=== PATIENT | female | born 1970 | race Caucasian/White ===

== ENCOUNTER 2022-11-20 04:59 | Day surgery (SDC) | payer BC, OTHER ==
[2022-11-19 07:57] VITALS: BMI 22.5
[2022-11-20 08:26] VITALS: TEMP 97.1
[2022-11-20 09:07] VITALS: BP 111/70; PULSE 67; RESP 16
[2022-11-20 10:47] LABS: POTASSIUM 4.8 mmol/L (3.5-5.1)
[2022-11-20 10:53] LABS: CALCIUM 9.5 mg/dL (8.5-10.1)
[2022-11-20 10:54] LABS: ALBUMIN 4.1 g/dl (3.4-5.0); BLOOD UREA NITROGEN 16.5 mg/dL (7-18)
[2022-11-20 10:57] LABS: CREATININE 1.1 mg/dL (0.55-1.3)
[2022-11-20 10:58] LABS: BILIRUBIN,TOTAL 0.5 mg/dL (0.2-1)
[2022-11-20 10:59] LABS: TOT PROT 7.7 g/dl (6.4-8.2)
== END 2022-11-20 09:51 | disposition home or self-care (01) ==
LOC: JASU-ENDO 04:59 → MERGE 08:00 → JASU-ENDO 09:51
PROVIDERS: ATTEND Internal Medicine Gastroenterology
PROC: 0DJD8ZZ Inspection of Lower Intestinal Tract, Via Natural or Artificial Opening Endoscopic (ICD-10-PCS; principal; 2022-11-20 08:00)
DX: Z12.11 Encounter for screening for malignant neoplasm of colon (principal); K64.8 Other hemorrhoids
CPT/HCPCS: 36415; 80053